=== PATIENT | female | born 1995 | race American Indian/Alaskan Native ===

== ENCOUNTER 2017-08-24 17:36 | Emergency (ER) | payer OTHER ==
[2017-08-24 19:06] LABS: SQUAMOUS EPITHIAL 4 /hpf (0-5); URINE BILIRUBIN NEGATIVE (NEGATIVE); URINE BLOOD NEGATIVE (NEGATIVE); URINE CLARITY Hazy (Clear); URINE COLOR Amber (YELLOW); URINE GLUCOSE (UA) NORMAL (Normal); URINE LEUKOCYTE ESTERASE NEG Leu/uL (Negative); URINE NITRATE NEGATIVE (NEGATIVE); URINE PROTEIN 1+ mg/dL (NEGATIVE); URINE UROBILINOGEN NORMAL mg/dL (0.2-1.0)
[2017-08-24 19:11] LABS: HCG,QUALITATIVE URINE NEGATIVE (NEGATIVE)
--- NOTE | 2017-08-24 19:50 | C.PDOC ---
History Of Present Illness 21 yo female come in for evaluation of epigastric discomfort associated with nausea " spitting up". Pt sts, "noted some strings of blood in my spit". Otherwise, pt denies fever, chills, recent illness, drooling, dysphagia, dyspnea , CP, SOB, palpitation, diarrhea, back pain, UTI sx, denies change in appetite or food intolerance. Ambulate to Ed for evaluation, not in any apparent distress. Time Seen by Provider: 08/24/17 18:32 Chief Complaint (Nursing): GI Problem History Per: Patient Past Medical History Reviewed: Historical Data, Nursing Documentation, Vital Signs Vital Signs: Last Vital Signs Temp 97.7 F 08/24/17 18:30 Pulse 86 08/24/17 18:30 Resp 18 08/24/17 18:30 BP 135/82 08/24/17 18:30 Pulse Ox 100 08/24/17 19:54 - Medical History PMH: No Chronic Diseases Family History: States: No Known Family Hx - Social History Hx Tobacco Use: Yes Hx Alcohol Use: Yes Hx Substance Use: No - Immunization History Hx Tetanus Toxoid Vaccination: No Hx Influenza Vaccination: No Hx Pneumococcal Vaccination: No Review Of Systems Except As Marked, All Systems Reviewed And Found Negative. Constitutional: Negative for: Fever, Chills ENT: Negative for: Throat Pain, Throat Swelling Cardiovascular: Negative for: Chest Pain, Palpitations Respiratory: Negative for: Cough, Shortness of Breath, Wheezing Gastrointestinal: Positive for: Nausea, Vomiting, Abdominal Pain. Negative for : Diarrhea, Melena, Hematochezia, Hematemesis, Rectal Pain Genitourinary: Negative for: Dysuria, Frequency Musculoskeletal: Negative for: Back Pain Skin: Negative for: Rash Neurological: Negative for: Weakness, Numbness, Altered Mental Status Physical Exam - Physical Exam Appears: Well, Non-toxic, No Acute Distress Skin: Normal Color, Warm, Dry, No Rash Head: Normacephalic Eye(s): bilateral: PERRL Ear(s): Bilateral: Normal Nose: No Flaring, No Discharge Oral Mucosa: Moist, No Drooling Throat: No Erythema, No Drooling Neck: Trachea Midline, Supple Cardiovascular: Rhythm Regular, No JVD Respiratory: No Decreased Breath Sounds, No Accessory Muscle Use, No Stridor, No Wheezing Gastrointestinal/Abdominal: Soft, Tenderness (mild epigastric), No Distention, No Guarding, No Rebound Back: No CVA Tenderness Extremity: Normal ROM, No Deformity, No Swelling ED Course And Treatment O2 Sat by Pulse Oximetry: 100 Pulse Ox Interpretation: Normal - Other Rad Abd, 2 views X-Ray: Interpreted by Me, Viewed By Me Interpretation: (-) air-fluid level, gas pattern c/w constipation Progress Note: On re-evaluation, pt is afebrile, hemodynamicaly stable. NOn- toxic. Tolerate PO well in ED. PulsEOx 100% RA. Neck: Supple, (-) meningeal sign. ENT: no acute findings. Lungs: CTA B/L, BS equal B/L. Abd: benign, (-) guarding, (-) rebound, (-) RLQ tenderness. Back: (-) CVA tenderness. Neurologicaly intact. UA results review and appears normal. Abd xray (-) air- fluid level. Pt has clinical findings c/w epigastric pain, constipation. pt advised, diet restriction. ref. to f/u with PMD, GI in 2-3 days for re-eval. return if any worsening or new changes. Disposition Counseled Patient/Family Regarding: Studies Performed, Diagnosis, Need For Followup, Rx Given - Disposition Referrals: [facility] [Outside] Disposition: HOME/ ROUTINE Disposition Time: 19:50 Condition: STABLE Additional Instructions: Take medication as prescribed Follow up with PMD, GI in 2-3 days for re-evaluation. return to ED if any worsening or new changes. Prescriptions: Famotidine [Pepcid] 20 mg PO BID #10 tab Polyethylene Glycol 3350 [Miralax] 17 gm PO DAILY #1 bottle Instructions: Epigastric Pain (ED) Forms: [employer] (Welsh) - Clinical Impression Clinical Impression: Epigastric pain
[2017-08-24] MEDS ORDERED: Sucralfate 1 gm/10 ml Oral Susp UD ONE (20:08)
[2017-08-24 20:33] VITALS: BP 110/82; PULSE 110; RESP 22; TEMP 97.3; O2SAT 98
--- NOTE | 2017-08-25 09:43 | RAD ---
HISTORY: pain COMPARISON: No prior. FINDINGS: BOWEL: Normal. No obstruction. No free air. BONES: Normal. OTHER FINDINGS: None. IMPRESSION: No active disease.
== END 2017-08-24 20:28 | disposition home or self-care (01) ==
LOC: C.ER 17:36
DX: R10.13 Epigastric pain (principal); Z87.891 Personal history of nicotine dependence

== ENCOUNTER 2017-10-15 12:29 | Emergency (ER) | payer OTHER ==
[2017-10-15 13:15] VITALS: BP 127/88; PULSE 70; RESP 20; TEMP 97.5; O2SAT 100
--- NOTE | 2017-10-15 13:56 | C.PDOC ---
History Of Present Illness 22 year old female presents to the ED c/o intermittent headache for the past 4+ months. Patient was seen at [facility] in August with a negative CT scan, also was evaluated at [facility] [place] for the same complaint two weeks ago. Patient reports pain relief after taking Ibuprofen but then returns. Patient denies nausea, vomit, diplopia, weakness, dizziness, fever, CP, SOB, leg swelling. No subjective neurological symptoms. Time Seen by Provider: 10/15/17 13:42 Chief Complaint (Nursing): Headache History Per: Patient History/Exam Limitations: no limitations Onset/Duration Of Symptoms: Days Current Symptoms Are (Timing): Still Present Quality: "Pain" Preceeding Symptoms: None Associated Symptoms: denies: Photophobia, Blurred Vision, Nausea, Vomiting Recent travel outside of the [place]: No Additional History Per: Patient Past Medical History Reviewed: Historical Data, Nursing Documentation, Vital Signs Vital Signs: Last Vital Signs Temp 97.5 F L 10/15/17 13:10 Pulse 70 10/15/17 13:10 Resp 20 10/15/17 13:59 BP 127/88 10/15/17 13:10 Pulse Ox 100 10/15/17 14:10 - Medical History PMH: No Chronic Diseases Denies: Chronic Kidney Disease Surgical History: No Surg Hx Family History: States: Unknown Family Hx - Social History Hx Tobacco Use: Yes Hx Alcohol Use: Yes Hx Substance Use: No - Immunization History Hx Tetanus Toxoid Vaccination: No Hx Influenza Vaccination: No Hx Pneumococcal Vaccination: No Review Of Systems Constitutional: Negative for: Fever, Chills Eyes: Negative for: Vision Change Cardiovascular: Negative for: Chest Pain Respiratory: Negative for: Shortness of Breath Gastrointestinal: Negative for: Abdominal Pain Skin: Negative for: Rash Neurological: Positive for: Headache. Negative for: Weakness, Numbness, Dizziness Physical Exam - Physical Exam Appears: Well, Non-toxic, No Acute Distress Skin: Normal Color, Warm, Dry Head: Atraumatic, Normacephalic, No Swelling Eye(s): bilateral: Normal Inspection, PERRL, EOMI Ear(s): Bilateral: Normal Nose: No Discharge Oral Mucosa: Moist Throat: Normal, No Erythema, No Exudate Neck: Normal ROM, Supple ((-) brudzinski and kernig) Chest: Symmetrical Cardiovascular: Rhythm Regular Respiratory: Normal Breath Sounds, No Rales, No Rhonchi, No Wheezing Gastrointestinal/Abdominal: Soft, No Tenderness, No Guarding, No Rebound Extremity: Normal ROM, No Tenderness, No Swelling Neurological/Psych: Oriented x3, Normal Speech, Normal Cognition, Normal Cranial Nerves (2-12 intact, no focal deficts), Normal Motor, Normal Sensation Gait: Steady ED Course And Treatment O2 Sat by Pulse Oximetry: 100 (On RA) Pulse Ox Interpretation: Normal Progress Note: Patient was offered pain medications but does not want any at this time. Patient states she will go home and take Ibuprofen at home. Instructed to f/u with PMD and neurologist for further evaluation this week. Disposition - Disposition Referrals: Lv Kwan MD [Medical Doctor] - Marco Antonio Easley MD [Staff Provider] - Disposition: HOME/ ROUTINE Disposition Time: 13:53 Condition: STABLE Additional Instructions: Follow up with your primary medical doctor or clinic in 2-5 days for further evaluation. Take medications as prescribed. Return to the emergency department at any time if symptoms persist or worsen. Prescriptions: Naproxen [Naprosyn] 1 tab PO BID PRN #20 tab PRN Reason: Pain Instructions: Headache, Adult (DC) Forms: [employer] (Azeri) - Clinical Impression Clinical Impression: Headache - PA / INVESTOR RELATIONS ASSOCIATE / Resident Statement MD/DO has reviewed & agrees with the documentation as recorded. - Scribe Statement The provider has reviewed the documentation as recorded by the Scribe John Huizar All medical record entries made by the Scribe were at my direction and personally dictated by me. I have reviewed the chart and agree that the record accurately reflects my personal performance of the history, physical exam, medical decision making, and the department course for this patient. I have also personally directed, reviewed, and agree with the discharge instructions and disposition.
--- NOTE | 2017-10-17 08:02 | CARD ---
APPROVED REPORT EKG Measurement Heart [id number] <Conclusion> Normal sinus rhythm with sinus arrhythmia Normal ECG
== END 2017-10-15 13:59 | disposition home or self-care (01) ==
LOC: C.ER 12:29
DX: R51 Headache (principal)